=== PATIENT | female | born 1950 | race Caucasian/White ===

== ENCOUNTER → 2016-03-16 | Outpatient (CLI) | payer BC | LOC: MC.RAD 10:27 | DX: Z12.31 Encounter for screening mammogram for malignant neoplasm of breast (principal) ==

== ENCOUNTER → 2017-04-04 | Outpatient (CLI) | payer BC | LOC: MC.RAD 11:19 | DX: Z12.31 Encounter for screening mammogram for malignant neoplasm of breast (principal) ==

== ENCOUNTER → 2018-04-11 | Outpatient (CLI) | payer BC | LOC: MC.RAD 12:50 | DX: Z12.31 Encounter for screening mammogram for malignant neoplasm of breast (principal) ==

== ENCOUNTER → 2018-04-13 | Outpatient (CLI) | payer BC | LOC: MC.RAD 10:24 | DX: R92.2 Inconclusive mammogram (principal) | CPT/HCPCS: G0279 ==

== ENCOUNTER → 2019-05-04 | Outpatient (CLI) | payer MEDICARE | LOC: MC.RAD 11:15 | DX: Z12.31 Encounter for screening mammogram for malignant neoplasm of breast (principal) ==

== ENCOUNTER → 2020-05-20 | Outpatient (CLI) | payer MEDICARE | LOC: MC.RAD | DX: Z12.31 Encounter for screening mammogram for malignant neoplasm of breast (principal) ==

== ENCOUNTER → 2020-05-27 | Outpatient (CLI) | payer MEDICARE | LOC: COL.RAD 12:00 | DX: N18.4 Chronic kidney disease, stage 4 (severe) (principal); I35.1 Nonrheumatic aortic (valve) insufficiency ==

== ENCOUNTER 2021-05-13 16:35 | Inpatient (IN) | payer MEDICARE ==
[~2021-05-13] VITALS: Ht 152.4 cm; Wt 78.1 kg
[2021-05-13 17:52] LABS: ALBUMIN 3.9 gm/dL (3.4-4.8); BILIRUBIN,TOTAL 0.9 mg/dL (0.2-1.2); CALCIUM 9.7 mg/dL (8.4-10.2); CREATININE, serum 3.22 mg/dL (0.57-1.11); POTASSIUM 4.8 mmol/L (3.5-4.5); TOTAL PROTEIN 6.8 gm/dL (6.2-8.1)
[2021-05-13 17:57] LABS: TROPONIN-I 0.032 ng/mL (0.00-0.033)
[2021-05-13 18:26] LABS: BASO % 0.3 % (0.0-2.0); EOS # 0.1 K/mm3 (0.0-0.7); EOS % 0.4 % (0.0-4.0); GRAN # 10.9 K/mm3 (1.4-6.5); GRAN % 81.1 % (42.2-75.2); HEMOGLOBIN 10.6 g/dl (12.5-16.0); LYMPH # 1.3 K/mm3 (1.2-3.4); LYMPH % 9.4 % (20.0-51.0); MEAN CELL VOLUME 85 fl (80.0-100.0); MEAN CORPUSCULAR HEMOGLOBIN 28 pg (27-31); MEAN CORPUSCULAR HGB CONC 33 g/dl (33.0-37.0); MEAN PLATELET VOLUME 10.1 fl (7.4-10.4); MONO % 7.6 % (1.7-9.3); PLATELET COUNT 125 K/mm3 (130-400); RED BLOOD COUNT 3.79 M/mm3 (4.10-5.30); REDCELL DISTRIBUTION WIDTH-CV 16.3 % (11.5-14.5)
[2021-05-13 18:35] LABS: HEMATOCRIT 32.2 % (37.0-47.0)
[2021-05-13 19:18] LABS: COLLECTION METHOD CLEAN CATCH
[2021-05-13] MEDS ORDERED: PREDNISONE10 MG PO ×2 (19:21→20:44)
[2021-05-13] MEDS ORDERED: SYNTHROID 0.10.15 MG PO (19:22)
[2021-05-13] MEDS ORDERED: SINGULAIR 110 MG/TAB PO (19:22)
[2021-05-13] MEDS ORDERED: PREDNISONE 5MG5 MG PO (19:22)
[2021-05-13] MEDS ORDERED: ALLEGRA 180MG180 MG PO (19:23)
[2021-05-13] MEDS ORDERED: DESYREL 50MG50 MG PO (19:23)
[2021-05-13] MEDS ORDERED: COZAAR100 MG PO (19:23)
[2021-05-13] MEDS ORDERED: AMBIEN CR6.25 MG PO (19:24)
[2021-05-13] MEDS ORDERED: NORVASC 10MG10 MG PO (19:24)
[2021-05-13 19:28] LABS: AMORPHOUS CRYSTAL Present (NOT PRESENT); MUCOUS Present (NOT PRESENT); PH 5 (5-8); SQUAMOUS EPITHELIAL None Seen /hpf (0-10); URINE APPEARANCE Hazy (CLEAR/HAZY); URINE BACTERIA Rare /hpf (NONE SEEN); URINE BILIRUBIN Negative (NEGATIVE); URINE BLOOD 1+ (NEGATIVE); URINE COLOR Amber (YELLOW); URINE GLUCOSE Negative (NEGATIVE); URINE KETONE Negative (NEGATIVE); URINE LEUKOCYTE ESTERASE Negative (NEGATIVE); URINE NITRATE Negative (NEGATIVE); URINE PROTEIN(semi-quant) 1+ (NEGATIVE); URINE RBC 0-2 /hpf (0-2); URINE UROBILINOGEN Negative (NEGATIVE)
[2021-05-13] MEDS ORDERED: GLUCOPHAGE500 MG/TAB PO (20:44)
[2021-05-13] MEDS ORDERED: CYTOMEL 2525 MCG/TAB PO (20:45)
[2021-05-13 22:18] VITALS: BP 115/66; PULSE 110; TEMP 98.5
--- NOTE | 2021-05-13 22:36 | NUR ---
Patient arrived to the unit alert and oriented, tachycardic. Heparin drip stopped and will wait for 2 hrs. Left leg swelling, purple, with edema 1. Denies pain, nausea or vomiting. Some dizziness.
[2021-05-14] VITALS (7 sets, daily range): BP systolic 102–133; BP diastolic 50–94; PULSE 61–110; TEMP 97.7–98.9
[2021-05-14 00:43] LABS: PARTIAL THROMBOPLASTIN TIME 52.3 SECONDS (26.0-37.0)
--- NOTE | 2021-05-14 05:52 | NUR ---
Patient has been stable along the night. She is alert and oriented. HR 95-110. She reported some dizziness when she arrived to the unit but now she is fine. Right now receiving NS at 150ml/hr and hep drip at 600 units/hr. Shift report will be given to day RN.
[2021-05-14 06:18] LABS: BASO % 0.4 % (0.0-2.0); EOS # 0.1 K/mm3 (0.0-0.7); EOS % 1.1 % (0.0-4.0); GRAN # 7.7 K/mm3 (1.4-6.5); GRAN % 77.1 % (42.2-75.2); HEMATOCRIT 28.1 % (37.0-47.0); HEMOGLOBIN 9.2 g/dl (12.5-16.0); LYMPH # 1.4 K/mm3 (1.2-3.4); MEAN CELL VOLUME 85 fl (80.0-100.0); MEAN CORPUSCULAR HEMOGLOBIN 28 pg (27-31); MEAN CORPUSCULAR HGB CONC 33 g/dl (33.0-37.0); MEAN PLATELET VOLUME 10.1 fl (7.4-10.4); MONO # 0.6 K/mm3 (0.1-0.6); MONO % 6.4 % (1.7-9.3); PLATELET COUNT 115 K/mm3 (130-400); RED BLOOD COUNT 3.29 M/mm3 (4.10-5.30); REDCELL DISTRIBUTION WIDTH-CV 16.6 % (11.5-14.5)
[2021-05-14 07:15] LABS: CALCIUM 8.3 mg/dL (8.4-10.2); CREATININE, serum 3.17 mg/dL (0.57-1.11); POTASSIUM 4.2 mmol/L (3.5-4.5)
[2021-05-14 07:30] LABS: PARTIAL THROMBOPLASTIN TIME 29.1 SECONDS (26.0-37.0)
--- NOTE | 2021-05-14 10:19 | NUR ---
recording studio setup worker met with patient to discuss discharge plan. Patient's son Ross ([phone]) present at bedside. Patient reports that she is independent with her ADL's and does not utilize any DME to assist with mobility. Patient has no oxygen needs at home. PCP is Dr. Mina and she utilizes [facility] for medications with no cost difficulty. Patient reports to having a DPOA-HC established and that her PCP should have a copy on file. Phone call made to JORGE Smith at [facility]. She found a copy in the patient's chart and is going to have fax a copy to the medical unit. Patient is planning on returning home once medically ready. Discharge plan: Home
--- NOTE | 2021-05-14 10:24 | NUR ---
Initial visit; Patient thanked [facility] for offering God's blessings and for keeping her in [facility]'s prayers.
--- NOTE | 2021-05-14 11:30 | NUR ---
PATIENT TAKEN TO MRI.
--- NOTE | 2021-05-14 13:51 | NUR ---
Primary nurse was assisted with [phone] patient care by [employer] student Addie Aguilar and [facility] instructor Bernie Stern MSN, RN.
--- NOTE | 2021-05-14 15:28 | NUR ---
Report from DOLORES Cruz. No complaints. Call light within reach
--- NOTE | 2021-05-14 18:05 | NUR ---
Patient resting in bed, A&O. VSS. IV CDI, fluids infusing. Denies pain and discomfort. Nurse asked the patient if she needed to void and she responded no. Nurse bladder scanned the patient >than 70mls. Nurse instructed the patient to call nursing staff for assistance as needed. Call light within reach. Bed alarm on
--- NOTE | 2021-05-14 20:31 | NUR ---
PT 24 HOUR URINE STARTED AT 1940 THIS SHIFT. PT UNDERSTANDS PURPOSE.
[2021-05-14 20:35] LABS: CREATININE, serum 3.3 mg/dL (0.57-1.11)
[2021-05-14 21:01] LABS: FRACTIONAL EXCRETION OF NA+ 1.59 %
--- NOTE | 2021-05-14 21:51 | NUR ---
HEPXA AT 0.40, GOAL, NO CHANGES TO HEP GTT INFUSION. NEXT HEPXA AT 0500 /.
[2021-05-15 04:00] VITALS: BP 127/55; PULSE 90; TEMP 98.7
[2021-05-15 06:01] LABS: BASO % 0.1 % (0.0-2.0); EOS % 0.1 % (0.0-4.0); GRAN # 8.8 K/mm3 (1.4-6.5); GRAN % 83.5 % (42.2-75.2); LYMPH # 0.9 K/mm3 (1.2-3.4); LYMPH % 8.3 % (20.0-51.0); MEAN CELL VOLUME 85 fl (80.0-100.0); MEAN CORPUSCULAR HGB CONC 33 g/dl (33.0-37.0); MEAN PLATELET VOLUME 10.1 fl (7.4-10.4); MONO # 0.7 K/mm3 (0.1-0.6); MONO % 6.8 % (1.7-9.3); PLATELET COUNT 145 K/mm3 (130-400); RED BLOOD COUNT 2.99 M/mm3 (4.10-5.30); REDCELL DISTRIBUTION WIDTH-CV 16.2 % (11.5-14.5)
[2021-05-15 06:07] LABS: HEMATOCRIT 25.3 % (37.0-47.0); HEMOGLOBIN 8.3 g/dl (12.5-16.0); MEAN CORPUSCULAR HEMOGLOBIN 28 pg (27-31)
[2021-05-15 06:15] LABS: CALCIUM 8.3 mg/dL (8.4-10.2); CREATININE, serum 2.97 mg/dL (0.57-1.11); MAGNESIUM 1.8 mg/dL (1.6-2.6); POTASSIUM 4.2 mmol/L (3.5-4.5)
--- NOTE | 2021-05-15 06:50 | NUR ---
PT HEPXA BACK AT 0.56 ,GOAL, NO CHANGES TO RATE, NEXT HEPXA 05/16/21 AT 0600. ALL NEEDS MET.
[2021-05-15 07:49] VITALS: BP 117/59; PULSE 64; TEMP 98.6
--- NOTE | 2021-05-15 08:10 | NUR ---
Patient laying in bed upon entering the room. Patient is A&Ox4 and appears to be doing well. Left leg is very swollen as compared to the right, patient does report pain when the leg is touched. Heparin gtt. is running at 8.5mL/hr, patient is tolerating this well. Last two Hep Xa labs have been w/in goal range; Next redraw is scheduled for 05/16 @0600.
[2021-05-15 11:55] VITALS: BP 119/75; PULSE 87; TEMP 98.1
--- NOTE | 2021-05-15 13:57 | NUR ---
rice field worker met with patient to follow up on recommendation of SNF per PT/OT. Patient's first choice would be [facility] with [facility] as a second choice. Clinical referral faxed to both facilities.
--- NOTE | 2021-05-15 13:59 | NUR ---
Primary nurse was assisted with [phone] patient care by [employer] student Waleska Ramos and [employer] instructor Bernie Stern MSN, RN.
[2021-05-15 16:00] VITALS: BP 128/69; PULSE 102; TEMP 97.9
--- NOTE | 2021-05-15 16:12 | NUR ---
Darlene with [facility] called to inquire about the patient's DPOA-HC. Informed Darlene that the patient is off the floor getting a procedure done at this time, but that i had called the patient's PCP yesterday and requested a copy to be faxed. Informed Darlene that at this time it looks like the patient would be here through the weekend. Darlene states that as long as they get the DPOA-HC form they would be good to accept the patient.
--- NOTE | 2021-05-15 17:40 | NUR ---
Patient has done well today; She was off the floor for a couple of hours for a sleep EEG. Patient has not had any complaints. Daughter was present today and updates were provided.
[2021-05-15 20:10] VITALS: BP 123/56; PULSE 107; TEMP 98.4
[2021-05-15 22:42] LABS: URINE TOTAL VOLUME - 24 HRS 1150 mL/24 hr
[2021-05-15 22:50] LABS: PROTEIN, TOTAL URINE random <7 mg/dL
[2021-05-16] VITALS (8 sets, daily range): BP systolic 107–136; BP diastolic 50–69; PULSE 73–100; TEMP 98–99.1
--- NOTE | 2021-05-16 04:24 | NUR ---
NO CLNICAL CHANGES THIS SHIFT.PT REMAINS A/OX4, STILL REQUIRES SBA ON AMBULATION, ALL NEEDS MET THIS SHIFT. CALL LIGHT WITHIN REACH. AWAITING HEPXA THIS AM.
[2021-05-16 06:26] LABS: MEAN CELL VOLUME 87 fl (80.0-100.0); MEAN CORPUSCULAR HGB CONC 32 g/dl (33.0-37.0); MEAN PLATELET VOLUME 9.8 fl (7.4-10.4); PLATELET COUNT 176 K/mm3 (130-400); RED BLOOD COUNT 2.96 M/mm3 (4.10-5.30); REDCELL DISTRIBUTION WIDTH-CV 16.3 % (11.5-14.5)
[2021-05-16 06:29] LABS: HEMATOCRIT 25.7 % (37.0-47.0); HEMOGLOBIN 8.2 g/dl (12.5-16.0); MEAN CORPUSCULAR HEMOGLOBIN 28 pg (27-31)
[2021-05-16 06:42] LABS: CALCIUM 8.7 mg/dL (8.4-10.2); CREATININE, serum 2.36 mg/dL (0.57-1.11); MAGNESIUM 1.5 mg/dL (1.6-2.6)
[2021-05-16 07:11] LABS: TSH w REFLEX 0.05 uIU/mL (0.350-4.940)
--- NOTE | 2021-05-16 08:07 | NUR ---
Initial Hep Xa from this morning came back at 0.00, this RN did not feel this was accurate so a redraw was ordered. Redraw came back at 0.25. Heparin gtt was increased by 100 units/hr. Rate changed from 850 units/hr to 950 units/hr, per protocol.
[2021-05-16 08:10] LABS: ANISOCYTOSIS 1+; HYPOCHROMIA 1+; LYMPHOCYTE 10 % (20.0-51.0); NEUTROPHILS 83 % (42.0-75.2); PLATELET ESTIMATE NORMAL (NORMAL)
[2021-05-16 08:11] LABS: OVALOCYTES 1+
--- NOTE | 2021-05-16 09:42 | NUR ---
Patient is doing well so far this morning and does not have any concerns/complaints. Ambulating w/o issue to the bathroom. IV remains intact w/ heparin gtt running at 950 units/hr. Son called, update given.
[2021-05-16 10:18] LABS: PROTHROMBIN TIME 11.1 SECONDS (9.7-12.8)
--- NOTE | 2021-05-16 13:41 | NUR ---
Patient doing well, shower provided by PCT and linens changed. Report given to Mago.
--- NOTE | 2021-05-16 14:45 | NUR ---
HepXa came back as goal. Will check again in the morning.
--- NOTE | 2021-05-16 15:45 | NUR ---
PT'S LEG HAS BECOME CONSIDERABLY MORE SWOLLEN AND DISCOLORED THAN WHEN THIS RN TOOK OVER CARE AT 1300. THE PATIENT'S LEG IS VERY SHINY, AND A RED/PURPLE COLOR. THERE ARE CURRENTLY STILL LEFT LOWER EXTREMITY PULSES PALPABLE AT THIS TIME. CONTACTED DR. LISA WHO STATES "PUT IN AN ORDER TO CHECK PULSES EVERY 2 HOURS." THIS RN PLACED THAT INTERVENTION IN AND WILL BEGIN TO CHECK AT 1600. NO OTHER CONCERNS AT THIS TIME. HEP GTT REMAINS ON AND RUNNING.
--- NOTE | 2021-05-16 18:21 | NUR ---
PT HAS HAD UNEVENTFUL REMAINDER OF THE SHIFT. PULSES STILL REMAIN PALPABLE AT THIS TIME.
[2021-05-17 03:26] VITALS: BP 145/65; PULSE 81; TEMP 98.9
--- NOTE | 2021-05-17 05:18 | NUR ---
PT HAD UNEVENTFUL NIGHT THIS SHIFT, HEP GTT INFUSING AT 950UNITS/HR, N.S INFUSING AT 100CC/HR, LLE REMAINS EDEMATOUS +2 PE, PEDAL PULSE WNL, POPLITEAL WEAK, FEMORAL WNL. LEG HAS REMAINED ELEVATED, PT CONFIRMS UNDERSTANDING OF PURPOSE. ALL NEEDS MET THIS SHIFT. PT EXPRESSES NO ADDITIONAL CONCERNS. CALL LIGHT WTIHIN REACH.
[2021-05-17 06:47] LABS: CREATININE, serum 1.86 mg/dL (0.57-1.11); MAGNESIUM 1.2 mg/dL (1.6-2.6); POTASSIUM 3.9 mmol/L (3.5-4.5)
[2021-05-17 06:51] LABS: INR 1.5 (0.8-3.0); PROTHROMBIN TIME 16.3 SECONDS (9.7-12.8)
[2021-05-17 07:35] VITALS: BP 136/72; PULSE 89; TEMP 98.5
--- NOTE | 2021-05-17 08:33 | NUR ---
PT RESTING IN BED. MORNING MEDICATIONS GIVEN. SHIFT ASSESSMENT COMPLETED. DENIES ANY PAIN TO LLE. PEDIAL PULSE AUDIBLE WITH DOPPLER, PITTING 3+ EDEMA. HEPARIN GTT INFUSING AT 8ML/HR. NS INFUSING AT 75ML/HR. WILL CONTINUE TO MONITOR.
[2021-05-17 11:15] VITALS: BP 104/66; PULSE 84; TEMP 98.8
[2021-05-17 15:28] VITALS: BP 125/63; PULSE 91; TEMP 97.7
[2021-05-17 20:37] VITALS: BP 130/63; PULSE 91; TEMP 98
[2021-05-17 23:34] VITALS: BP 136/67; PULSE 80; TEMP 97.6
--- NOTE | 2021-05-17 23:52 | NUR ---
PATIENT DOING WELL TONIGHT. ALERT AND ORIENTED. DENIES PAIN. PEDAL PULSES PALPABLE. LLE RED, SHINY AND EDEMATOUS. HEP XA WITHIN GOAL LIMIT AND NEXT CHECK WILL BE IN AM. HS MEDS GIVEN. ASSESSMENT COMPLETED.
[2021-05-18 04:07] VITALS: BP 135/63; PULSE 85; TEMP 97.8
[2021-05-18 06:36] LABS: MEAN CELL VOLUME 88 fl (80.0-100.0); MEAN CORPUSCULAR HGB CONC 32 g/dl (33.0-37.0); MEAN PLATELET VOLUME 9.5 fl (7.4-10.4); PLATELET COUNT 225 K/mm3 (130-400); RED BLOOD COUNT 3.08 M/mm3 (4.10-5.30); REDCELL DISTRIBUTION WIDTH-CV 16.7 % (11.5-14.5)
[2021-05-18 06:43] LABS: INR 2.6 (0.8-3.0)
[2021-05-18 06:48] LABS: HEMOGLOBIN 8.5 g/dl (12.5-16.0); MEAN CORPUSCULAR HEMOGLOBIN 28 pg (27-31)
[2021-05-18 06:53] LABS: CALCIUM 8.4 mg/dL (8.4-10.2); CREATININE, serum 1.84 mg/dL (0.57-1.11); POTASSIUM 3.9 mmol/L (3.5-4.5)
[2021-05-18 07:17] LABS: BAND 10 % (0-10); EOSINOPHIL 2 % (0-4); LYMPHOCYTE 22 % (20.0-51.0); NEUTROPHILS 65 % (42.0-75.2)
[2021-05-18 07:21] LABS: ANISOCYTOSIS 1+; HYPOCHROMIA 1+; OVALOCYTES 1+; PLATELET ESTIMATE NORMAL (NORMAL)
[2021-05-18 07:30] VITALS: BP 135/67; PULSE 69; TEMP 98.1
--- NOTE | 2021-05-18 08:12 | NUR ---
PT RESTING IN BED. MONRNING MEDICATIONS GIVEN. SHIFT ASSESSMENT COMPLETED. DENIES ANY PAIN. PULSE PRESENT IN LLE. CONTINUING TO MONITOR.
--- NOTE | 2021-05-18 09:28 | NUR ---
Clinical updates faxed to Darlene at [facility]
[2021-05-18 11:53] VITALS: BP 118/66; PULSE 90; TEMP 98
--- NOTE | 2021-05-18 14:53 | NUR ---
Warfarin Follow-up Pharmacy Note Current regimen: Warfarin 4 mg po qHS LABS: INR 2.6 <- 1.5 (05/17/21) Changes in therapy: Will hold tonight's dose as INR increased by more than 1 from yesterday. Will resume with lower dose tomorrow based on INR. Pharmacy will continue to closely montior.
[2021-05-18 15:48] VITALS: BP 114/62; PULSE 95; TEMP 98.2
[2021-05-18 20:20] VITALS: BP 115/57; PULSE 84; TEMP 98.4
--- NOTE | 2021-05-18 21:32 | NUR ---
Patient is resting in bed, alert and oriented, VSS, Assessment completed, no other needs at this time. Call light within reach. Bed alarm on.
[2021-05-18 23:52] VITALS: BP 151/57; PULSE 70; TEMP 98.4
[2021-05-19 04:42] VITALS: BP 147/64; PULSE 71; TEMP 97.8
--- NOTE | 2021-05-19 06:25 | NUR ---
Patient has been stable along the night. Right now is awake watching television. Shift report will be given to day RN.
[2021-05-19 06:58] LABS: MEAN CELL VOLUME 86 fl (80.0-100.0); MEAN CORPUSCULAR HGB CONC 32 g/dl (33.0-37.0); MEAN PLATELET VOLUME 9.5 fl (7.4-10.4); PLATELET COUNT 221 K/mm3 (130-400); RED BLOOD COUNT 3.25 M/mm3 (4.10-5.30); REDCELL DISTRIBUTION WIDTH-CV 16.9 % (11.5-14.5)
[2021-05-19 07:03] LABS: HEMATOCRIT 27.8 % (37.0-47.0); MEAN CORPUSCULAR HEMOGLOBIN 28 pg (27-31)
[2021-05-19 07:13] LABS: CALCIUM 8.4 mg/dL (8.4-10.2); CREATININE, serum 1.73 mg/dL (0.57-1.11)
[2021-05-19] MEDS ORDERED: SYNTHROID0.075 MG/T PO (07:26)
[2021-05-19 07:48] LABS: BAND 15 % (0-10); LYMPHOCYTE 13 % (20.0-51.0); METAMYELOCYTE 1 % (0-0); NEUTROPHILS 66 % (42.0-75.2); PLATELET ESTIMATE NORMAL (NORMAL)
--- NOTE | 2021-05-19 08:00 | NUR ---
Patient laying in bed, no complaints of pain and discomfort in left leg. IV CDI. VSS. No further needs expressed. Call light within reach
[2021-05-19 08:13] VITALS: BP 143/57; PULSE 76; TEMP 98.5
[2021-05-19 08:54] LABS: PROTHROMBIN TIME 59.6 SECONDS (9.7-12.8)
[2021-05-19 08:55] LABS: INR 5.3 (0.8-3.0)
[2021-05-19] MEDS ORDERED: NOVOLOG 100U100 U/M1 SQ (09:16)
--- NOTE | 2021-05-19 09:32 | NUR ---
Clinical updates and discharge orders faxed to Darlene at [facility]. Notified of dc today. MCR.IM form presented to patient. Education provided and questions answered. Original copy placed in patient's chart and copy provided back to patient. Covid swab requesed
--- NOTE | 2021-05-19 11:55 | NUR ---
Patient transfered by [facility] transporter to [facility]. Personal belongings and discharge packet with the patient. Report called to [facility]. IV removed, tip intact. No further needs expressed.
== END 2021-05-19 11:55 | DRG 682 ==
LOC: COL.ER 16:35 → MEDICAL 19:16
PROVIDERS: Emergency Medicine; Internal Medicine; Nurse Practitioner Family; Student in an Organized Health Care Education/Training Program; ADMIT Internal Medicine
DX: N17.9 Acute kidney failure, unspecified (principal); G93.41 Metabolic encephalopathy; E87.2 Acidosis; I82.402 Acute embolism and thrombosis of unspecified deep veins of left lower extremity; I95.1 Orthostatic hypotension; E03.9 Hypothyroidism, unspecified; E86.0 Dehydration; E87.5 Hyperkalemia; D64.9 Anemia, unspecified; D69.6 Thrombocytopenia, unspecified; E11.65 Type 2 diabetes mellitus with hyperglycemia; G90.9 Disorder of the autonomic nervous system, unspecified; E11.42 Type 2 diabetes mellitus with diabetic polyneuropathy; R25.1 Tremor, unspecified; G89.29 Other chronic pain; M54.50 Low back pain, unspecified; E11.22 Type 2 diabetes mellitus with diabetic chronic kidney disease; I12.9 Hypertensive chronic kidney disease with stage 1 through stage 4 chronic kidney disease, or unspecified chronic kidney disease; M35.3 Polymyalgia rheumatica; N18.4 Chronic kidney disease, stage 4 (severe); D50.9 Iron deficiency anemia, unspecified; Z20.822 Contact with and (suspected) exposure to COVID-19; Z87.891 Personal history of nicotine dependence; Z79.84 Long term (current) use of oral hypoglycemic drugs; Z79.52 Long term (current) use of systemic steroids; Z23 Encounter for immunization
CPT/HCPCS: 99223-AI; 99232-AI; 99233-AI; 99239; J1644; J1815; J3475; J7030; J7050; J7512

== ENCOUNTER 2021-09-16 13:40 | Emergency (ER) | payer MEDICARE ==
[~2021-09-16] VITALS: Ht 152.4 cm; Wt 68.2 kg
[~2021-09-16 13:40] MED LIST: ALLEGRA 180MG180 MG PO; AMBIEN CR6.25 MG PO; COZAAR100 MG PO; CYTOMEL 2525 MCG/TAB PO; DESYREL 50MG50 MG PO; GLUCOPHAGE500 MG/TAB PO; NORVASC 10MG10 MG PO; NOVOLOG 100U100 U/M1 SQ; PREDNISONE 5MG5 MG PO; PREDNISONE10 MG PO; SINGULAIR 110 MG/TAB PO; SYNTHROID 0.10.15 MG PO; SYNTHROID0.075 MG/T PO
[2021-09-16 13:42] VITALS: TEMP 98.4
[2021-09-16 14:06] LABS: BASO # 0.1 K/mm3 (0.0-0.2); BASO % 0.5 % (0.0-2.0); EOS # 0.1 K/mm3 (0.0-0.7); EOS % 0.5 % (0.0-4.0); GRAN # 8.9 K/mm3 (1.4-6.5); GRAN % 80.5 % (42.2-75.2); HEMOGLOBIN 11.1 g/dl (12.5-16.0); LYMPH # 1.2 K/mm3 (1.2-3.4); LYMPH % 11.1 % (20.0-51.0); MEAN CELL VOLUME 86 fl (80.0-100.0); MEAN CORPUSCULAR HEMOGLOBIN 26 pg (27-31); MEAN CORPUSCULAR HGB CONC 30 g/dl (33.0-37.0); MEAN PLATELET VOLUME 9.5 fl (7.4-10.4); MONO # 0.7 K/mm3 (0.1-0.6); MONO % 6.2 % (1.7-9.3); PLATELET COUNT 271 K/mm3 (130-400); RED BLOOD COUNT 4.29 M/mm3 (4.10-5.30); REDCELL DISTRIBUTION WIDTH-CV 16.9 % (11.5-14.5)
[2021-09-16 14:09] LABS: HEMATOCRIT 36.7 % (37.0-47.0)
[2021-09-16 14:35] LABS: ALBUMIN 3.5 gm/dL (3.4-4.8); BILIRUBIN,TOTAL 0.4 mg/dL (0.2-1.2); CALCIUM 9.4 mg/dL (8.4-10.2); CREATININE, serum 1.49 mg/dL (0.57-1.11); POTASSIUM 4.1 mmol/L (3.5-4.5); TOTAL PROTEIN 6.4 gm/dL (6.2-8.1)
[2021-09-16 15:21] LABS: COLLECTION METHOD CLEAN CATCH
[2021-09-16 15:29] LABS: URINE APPEARANCE Hazy (CLEAR/HAZY); URINE COLOR Yellow (YELLOW)
[2021-09-16 15:30] LABS: PH 5 (5-8); URINE BILIRUBIN Negative (NEGATIVE); URINE BLOOD Negative (NEGATIVE); URINE GLUCOSE Negative (NEGATIVE); URINE KETONE Negative (NEGATIVE); URINE LEUKOCYTE ESTERASE Trace (NEGATIVE); URINE NITRATE Negative (NEGATIVE); URINE PROTEIN(semi-quant) 1+ (NEGATIVE); URINE UROBILINOGEN Negative (NEGATIVE)
[2021-09-16 15:58] LABS: MUCOUS Present (NOT PRESENT); URINE BACTERIA Many /hpf (NONE SEEN)
[2021-09-16 15:59] VITALS: BP 171/92; PULSE 80
== END 2021-09-16 16:00 | disposition home or self-care (01) ==
LOC: COL.ER 13:40
PROVIDERS: Family Medicine
DX: R55 Syncope and collapse (principal)
CPT/HCPCS: J7120

== ENCOUNTER 2021-10-01 15:46 | Emergency (ER) | payer MEDICARE ==
[~2021-10-01] VITALS: Ht 152.4 cm; Wt 68.2 kg
[2021-10-01 16:03] VITALS: TEMP 98.1
[2021-10-01 16:27] LABS: BASO % 0.3 % (0.0-2.0); EOS % 0.1 % (0.0-4.0); GRAN # 10.3 K/mm3 (1.4-6.5); GRAN % 86.2 % (42.2-75.2); HEMOGLOBIN 11.3 g/dl (12.5-16.0); LYMPH # 0.8 K/mm3 (1.2-3.4); LYMPH % 6.6 % (20.0-51.0); MEAN CELL VOLUME 81 fl (80.0-100.0); MEAN CORPUSCULAR HEMOGLOBIN 26 pg (27-31); MEAN CORPUSCULAR HGB CONC 32 g/dl (33.0-37.0); MEAN PLATELET VOLUME 9.6 fl (7.4-10.4); MONO # 0.7 K/mm3 (0.1-0.6); MONO % 6.2 % (1.7-9.3); PLATELET COUNT 266 K/mm3 (130-400); RED BLOOD COUNT 4.37 M/mm3 (4.10-5.30); REDCELL DISTRIBUTION WIDTH-CV 17.7 % (11.5-14.5)
[2021-10-01 16:31] LABS: HEMATOCRIT 35.4 % (37.0-47.0)
[2021-10-01 16:33] LABS: INR 2.3 (0.8-3.0); PROTHROMBIN TIME 27.2 SECONDS (9.7-12.8)
[2021-10-01 16:50] LABS: ALBUMIN 3.3 gm/dL (3.4-4.8); BILIRUBIN,TOTAL 0.9 mg/dL (0.2-1.2); CALCIUM 9.3 mg/dL (8.4-10.2); CREATININE, serum 1.47 mg/dL (0.57-1.11); POTASSIUM 3.8 mmol/L (3.5-4.5); TOTAL PROTEIN 6.5 gm/dL (6.2-8.1)
[2021-10-01 18:49] LABS: COLLECTION METHOD CLEAN CATCH
[2021-10-01 18:54] LABS: PH 6 (5-8); SQUAMOUS EPITHELIAL 0-2 /hpf (0-10); URINE APPEARANCE Clear (CLEAR/HAZY); URINE BACTERIA None Seen /hpf (NONE SEEN); URINE BLOOD Negative (NEGATIVE); URINE COLOR Straw (YELLOW); URINE GLUCOSE Negative (NEGATIVE); URINE KETONE Negative (NEGATIVE); URINE NITRATE Negative (NEGATIVE); URINE PROTEIN(semi-quant) Negative (NEGATIVE); URINE RBC None Seen /hpf (0-2); URINE UROBILINOGEN Negative (NEGATIVE)
[2021-10-01 19:30] VITALS: BP 158/81; PULSE 81
[2021-10-06] MEDS ORDERED: PREDNISONE 5MG5 MG (14:56)
[2021-10-06] MEDS ORDERED: AMARYL 2MG T2 MG/TAB (14:57)
[2021-10-06] MEDS ORDERED: GLUCOPHAGE500 MG/TAB (14:57)
[2021-10-06] MEDS ORDERED: XARELTO15 MG (14:59)
[2021-10-06] MEDS ORDERED: EUTHYROX125 MCG (15:00)
[2021-10-06] MEDS ORDERED: NATURAL IRON65 MG (15:01)
== END 2021-10-01 19:30 | disposition home or self-care (01) ==
LOC: COL.ER 15:46
PROVIDERS: Physician Assistant
DX: R42 Dizziness and giddiness (principal); R79.89 Other specified abnormal findings of blood chemistry; E11.9 Type 2 diabetes mellitus without complications; D72.829 Elevated white blood cell count, unspecified; Z79.01 Long term (current) use of anticoagulants; Z86.718 Personal history of other venous thrombosis and embolism; Z79.4 Long term (current) use of insulin
CPT/HCPCS: J7030